=== PATIENT | female | born 1965 | race Caucasian/White ===

== ENCOUNTER 2016-11-09 09:16 | Emergency (ER) | payer OTHER ==
[~2016-11-09] VITALS: Ht 154.9 cm; Wt 90.0 kg
[2016-11-09 09:22] VITALS: Ht 154.9 cm; Wt 90.0 kg
[2016-11-09] MEDS ORDERED: MECLIZINE 12.5 MG TAB PO ONE (10:00)
[2016-11-09] MEDS ORDERED: MECL12.574 PO (10:02)
--- NOTE | 2016-11-09 10:14 | ERD ---
ER Documentation Chief Complaint Date/Time DATE: 11/09/16 TIME: 10:12 Chief Complaint Complains of Nausea nad vomiting x 3 days HPI 50-year-old female complaining of dizziness and nausea 3 days. She is had 3 episode of vomiting this morning. Described dizziness as a spinning-like sensation when she is walking or when she is sitting up or lying down. She has mild epigastric pain. Reports history of gastritis and acid reflux. Denies fever or chills. Denies diarrhea or constipation. Denies recent head injury. Denies tinnitus ROS All systems reviewed and are negative except as per history of present illness. Medications Home Meds Active Scripts Meclizine Hcl* (Antivert*) 12.5 Mg Tab, 12.5 MG PO Q6H Y for DIZZINESS, #20 TAB Prov:SAL SHINE [place]. 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 Patient started vomiting in the exam room after sitting up from supine position. Skin: Warm and dry without rash, good texture and turgor Head: Normocephalic without evidence of trauma Eyes: Sclera and conjunctivae normal; pupils equal, round, and reactive to light; extraocular movements are intact. No nystagmus noted. Ears: Canals are patent. Tympanic membranes are clear Neck: Supple without meningismus or adenopathy. Carotids are equal. Trachea midline. No bruits or JVD Chest: Normal AP diameter. Good expansion without retractions. Nontender. Lungs are clear to auscultate bilaterally with good tidal volume Heart: Regular rate and rhythm. No murmur, rub, or gallops heard Abdomen: Soft, mild epigastric tenderness without masses, guarding, or rebound. Bowel sounds are active. No hepatosplenomegaly Back: Without spinal or CVA tenderness Extremities: Full range of motion. Good strength bilaterally. No clubbing, cyanosis, or edema. Peripheral pulses are intact. Sensation intact Neuro: Alert and oriented 4; GCS 15. Cranial nerves II - XII intact. Motor sensory exam nonfocal. Moves all extremities. Deep tendon reflexes 2+ in all extremities. Speech clear. No pronator drift. Gait steady. Results 24 hrs Current Medications Medications (Trade) Dose Ordered Sig/Pedro Route PRN Reason Start Time Stop Time Status Last Admin Dose Admin Meclizine HCl (Antivert) 25 mg ONCE ONCE PO 11/09/16 10:00 11/09/16 10:01 DC 11/09/16 10:03 Procedures/MDM Well-appearing 50-year-old femur present to the ED with vertigo 3 days. Likely cause of her vertigo is benign positional vertigo. Low suspicion for central causes of vertigo such as stroke, intracranial hemorrhage, vertebral artery dissection, acoustic neuroma. Patient given meclizine in the ED. Additional meclizine is prescribed for the patient. Patient also given instruction on home Carmen maneuver. Patient appears well, stable for discharge and outpatient management. Medical decision making shared with patient and family. Education provided to patient and family. Patient and family expressed understanding of the plan. Medications on discharge: Meclizine. Follow-up: Primary care provider in 2-3 days or return to ED if worse. Departure Diagnosis: Primary Impression: BPV (benign positional vertigo) Laterality: unspecified laterality Qualified Code: H81.10 - BPV (benign positional vertigo), unspecified laterality Condition: Stable Patient Instructions: Benign Positional Vertigo [facility] Usted se lynne hecho un examen mdico de control que le indica que no est en barak condicin que requiera tratamiento urgente en el Departamento de Emergencia. Un estudio ms profundo y el tratamiento de henson condicin pueden esperar sin ningn riesgo hasta que usted sea atendida/o en el consultorio de henson mdico o barak cl clover. Es responsabilidad suya arreglar barak thuy para el seguimiento del caren. MANEJO DE CONDICIONES NO URGENTES EN EL FUTURO 1) Si usted tiene un mdico de atencin primaria: Usted debera llamar a henson mdico de atencin primaria antes de venir al departamento de emergencia. Despus de las horas de consultorio, henson doctor o henson asociado/a est disponible por telfono. El mdico o enfermero de bib en el servicio telefnico puede asesorarle por jazmyn medio para atender el problema, o caren contrario se puede programar barak thuy. 2) Si usted no tiene un mdico de atencin primaria: Llame al mdico o clnica de referencia que aparece abajo zahida las horas de consultorio para hacer barak thuy para que le vean. CLINICAS: [place] [id number] [phone] [facility] [phone] [facility]. [facility] [phone] [facility]. [place] [phone] [facility] [place] [phone] [facility]. [phone] [address] Additional Instructions: Llame al doctor MAANA y brandan barak THUY PARA DENTRO DE 2-3 ELAINE.Dgale a la secretaria que nosotros le instruimos hacer esta thuy.Avise o llame si henson condicin se empeora antes de la thuy. Regresa aqui si peor o no mejor. SAL SHINE. MARIAN Nov 09, 2016 10:13
[2016-11-09 10:29] VITALS: BP 127/68; PULSE 77; RESP 18
== END 2016-11-09 10:59 | disposition home or self-care (01) ==
LOC: FTE 09:16
DX: H81.10 Benign paroxysmal vertigo, unspecified ear (principal); E11.9 Type 2 diabetes mellitus without complications; I10 Essential (primary) hypertension
CPT/HCPCS: 99283